=== PATIENT | female | born 1955 | race Caucasian/White ===

== ENCOUNTER → 2024-08-14 17:46 | Outpatient (REF) | payer OTHER, SELFPAY | LOC: RAD 17:46 | PROVIDERS: ATTENDING PHYSICIAN Internal Medicine | DX: S76.219A Strain of adductor muscle, fascia and tendon of unspecified thigh, initial encounter (principal); M25.552 Pain in left hip | CPT/HCPCS: 73502 ==

== ENCOUNTER 2024-09-15 13:04 | Outpatient (RCR) | payer OTHER, SELFPAY | END 2024-09-15 23:59 | disposition home or self-care (01) | LOC: RPT 13:04 | PROVIDERS: ATTENDING PHYSICIAN Internal Medicine | DX: S76.219D Strain of adductor muscle, fascia and tendon of unspecified thigh, subsequent encounter (principal); Z73.6 Limitation of activities due to disability | CPT/HCPCS: 97110; 97162 ==

== ENCOUNTER → 2024-10-26 14:08 | Outpatient (REF) | payer OTHER, SELFPAY | LOC: WDC 14:08 | PROVIDERS: ATTENDING PHYSICIAN Obstetrics & Gynecology Gynecology; FAMILY PHYSICIAN Internal Medicine | DX: Z78.0 Asymptomatic menopausal state (principal); Z12.31 Encounter for screening mammogram for malignant neoplasm of breast | CPT/HCPCS: 77063; 77067; 77080 ==

== ENCOUNTER → 2024-11-02 14:01 | Outpatient (REF) | payer OTHER, SELFPAY | LOC: HWRAD 14:01 | PROVIDERS: ATTENDING PHYSICIAN Internal Medicine Critical Care Medicine; FAMILY PHYSICIAN Internal Medicine | DX: R91.1 Solitary pulmonary nodule (principal) | CPT/HCPCS: 71250 ==

== ENCOUNTER → 2024-11-06 10:04 | Outpatient (REF) | payer OTHER, SELFPAY | LOC: WDC 10:04 | PROVIDERS: ATTENDING PHYSICIAN Obstetrics & Gynecology Gynecology; FAMILY PHYSICIAN Internal Medicine | DX: R92.8 Other abnormal and inconclusive findings on diagnostic imaging of breast (principal) | CPT/HCPCS: 77065 ==

== ENCOUNTER → 2024-11-12 07:05 | Outpatient (REF) | payer OTHER, SELFPAY ==
--- NOTE | 2024-11-12 09:17 | OID.BR.INTR ---
[facility] Breast Navigator - Initial
- -
Date of Contact: 11/12/24
Met with patient. Patient given written information on navigator services and support services available at [facility]. Will follow up as needed per protocol.
== END ==
LOC: WDC 07:05
PROVIDERS: ATTENDING PHYSICIAN Obstetrics & Gynecology Gynecology
DX: R92.1 Mammographic calcification found on diagnostic imaging of breast (principal)
CPT/HCPCS: 88305; 19081; 76098; A4648

== ENCOUNTER → 2024-12-02 10:52 | Outpatient (REF) | payer OTHER, SELFPAY ==
[2024-12-02 15:07] LABS: % Basophils 0.3 % (0-2); % Eosinophils 0.9 % (0-6); % Immature Granulocytes 0.9 % (0-0.5); % Lymphocytes 24.7 % (20.5-51.1); % Monocytes 7.7 % (1.7-9.3); % Neutrophils 65.5 % (42.2-75.2); Absolute Eosinophils 0.1 10^3/uL (0-0.7); Absolute Immature Granulocytes 0.1 10^3/uL (0-0.05); Absolute Lymphocytes 1.6 10^3/uL (1.2-3.4); Absolute Monocytes 0.5 10^3/uL (0.1-0.6); Absolute Neutrophils 4.2 10^3/uL (1.4-6.5); Hematocrit 42.3 % (37.0-47.0); Hemoglobin 14.1 g/dL (12.0-16.0); Mean Corp Hgb Conc. 33.3 g/dL (33.0-37.0); Mean Corpuscular Hgb 29.9 pg (27.0-31.0); Mean Corpuscular Volume 89.8 fL (81.0-99.0); Mean Platelet Volume 10.9 fL (7.4-10.4); Nucleated Red Blood Cells % 0 %; Platelet Count 255 10^3/uL (130-400); Red Blood Cell Count 4.71 10^6/uL (4.20-5.40); Red Cell Dist. Width 12.4 % (11.5-14.5); White Blood Cell Count 6.5 10^3/uL (4.8-10.8)
[2024-12-02 15:45] LABS: ALT (SGPT) 37 U/L (0-35); AST (SGOT) 30 U/L (14-36); Albumin 4.5 g/dl (3.5-5.0); Alkaline Phosphatase 99 U/L (38-126); Direct Bilirubin 0.2 mg/dl (0.0-0.4); HDL Cholesterol 51 mg/dl; LDL Cholesterol, Calculated 163 mg/dl; Total Bilirubin 0.5 mg/dl (0.2-1.3); Total Cholesterol 239 mg/dl (50-199); Total Protein 7.4 g/dl (6.3-8.2); Triglyceride 128 mg/dl (10-149); Very Low Density Lipoprotein 25 mg/dl (0-30)
[2024-12-02 15:49] LABS: Erythrocyte Sed Rate 13 mm/hour (0-20)
[2024-12-02 16:09] LABS: TSH 1.68 uIU/ml (0.47-4.68)
[2024-12-03 08:15] LABS: Glycohemoglobin (HgbA1c) 5.8 % (4.0-5.6)
[2024-12-03 18:34] LABS: CA 125 10.6 U/mL (0-35)
== END ==
LOC: OLAB 10:52
PROVIDERS: ATTENDING PHYSICIAN Internal Medicine; OTHER PHYSICIAN Internal Medicine Gastroenterology
DX: K76.0 Fatty (change of) liver, not elsewhere classified (principal); R91.1 Solitary pulmonary nodule; I10 Essential (primary) hypertension; R73.01 Impaired fasting glucose; G47.33 Obstructive sleep apnea (adult) (pediatric); Z98.890 Other specified postprocedural states
CPT/HCPCS: 36415; 80061; 80076; 83036; 84443; 85025; 85652; 86304

== ENCOUNTER 2024-12-14 06:16 | Day surgery (SDC) | payer OTHER, SELFPAY ==
[2024-12-02 13:52] VITALS: BMI 28.3
[2024-12-02 14:33] LABS: INR 0.88; PT 12.5 Sec (11.4-14.6)
[2024-12-02 14:34] LABS: APTT 26.3 Sec (23.4-35.0)
[2024-12-02 15:52] LABS: Blood Urea Nitrogen 19 mg/dl (7-17); Carbon Dioxide 27 mmol/L (22-30); Chloride 103 mmol/L (98-107); Estimated Creatinine Clearance 62 ml/min; Glucose 115 mg/dl (70-99); Potassium 4.3 mmol/L (3.5-5.1); Sodium 140 mmol/L (135-145); eGFR > 60.00
[2024-12-14] VITALS (10 sets, daily range): BP systolic 126–169; BP diastolic 66–86; BMI 28.3
== END 2024-12-14 11:50 | disposition home or self-care (01) ==
LOC: SDS 06:16
PROVIDERS: ATTENDING PHYSICIAN Internal Medicine Critical Care Medicine; FAMILY PHYSICIAN Internal Medicine
DX: C34.90 Malignant neoplasm of unspecified part of unspecified bronchus or lung (principal); R91.1 Solitary pulmonary nodule; R91.8 Other nonspecific abnormal finding of lung field; R59.0 Localized enlarged lymph nodes
CPT/HCPCS: 31629; 31623; 31628; 31654; 31624; 31627; 88173; 88305; 36415; 71045; 76000; 80048; 85610; 85730; 87070; 87102; 87116; 87205; 88112; 88333; 88341; 88342; 94640; C1887

== ENCOUNTER → 2025-01-06 07:43 | Outpatient (REF) | payer OTHER, SELFPAY | LOC: PET 07:43 | PROVIDERS: ATTENDING PHYSICIAN Internal Medicine Critical Care Medicine | DX: C7A.8 Other malignant neuroendocrine tumors (principal) | CPT/HCPCS: 78815 ==

== ENCOUNTER → 2025-02-22 12:28 | Outpatient (REF) | payer OTHER, SELFPAY | LOC: HWRAD 12:28 | PROVIDERS: ATTENDING PHYSICIAN Internal Medicine Gastroenterology; FAMILY PHYSICIAN Internal Medicine | DX: K76.0 Fatty (change of) liver, not elsewhere classified (principal) | CPT/HCPCS: 76700 ==

== ENCOUNTER → 2025-04-12 13:25 | Outpatient (REF) | payer OTHER, SELFPAY | LOC: HWRAD 13:25 | PROVIDERS: ATTENDING PHYSICIAN Thoracic Surgery (Cardiothoracic Vascular Surgery); FAMILY PHYSICIAN Internal Medicine | DX: Z01.818 Encounter for other preprocedural examination (principal); R91.1 Solitary pulmonary nodule | CPT/HCPCS: 71250 ==

== ENCOUNTER 2025-04-21 05:05 | Inpatient (IN) | payer OTHER, SELFPAY ==
[2025-04-07 12:17] VITALS: BMI 33.3
[2025-04-07 12:52] LABS: Hematocrit 38.9 % (37.0-47.0); Hemoglobin 13.8 g/dL (12.0-16.0); Mean Corp Hgb Conc. 35.5 g/dL (33.0-37.0); Mean Corpuscular Volume 87.8 fL (81.0-99.0); Nucleated Red Blood Cells % 0 %; Platelet Count 261 10^3/uL (130-400); Red Cell Dist. Width 12.6 % (11.5-14.5)
[2025-04-07 13:04] LABS: INR 0.92; PT 12.9 Sec (11.4-14.6)
[2025-04-07 13:04] LABS: Urine Character Clear (Clear)
[2025-04-07 13:17] LABS: ALT (SGPT) 26 U/L (0-35); AST (SGOT) 21 U/L (14-36); Albumin 4.2 g/dl (3.5-5.0); Alkaline Phosphatase 80 U/L (38-126); Blood Urea Nitrogen 18 mg/dl (7-17); Calcium 9.9 mg/dl (8.4-10.2); Carbon Dioxide 26 mmol/L (22-30); Chloride 106 mmol/L (98-107); Estimated Creatinine Clearance 64 ml/min; Glucose 105 mg/dl (70-99); Potassium 4.1 mmol/L (3.5-5.1); Sodium 138 mmol/L (135-145); Total Protein 7.2 g/dl (6.3-8.2); eGFR > 60.00
[2025-04-07 13:20] LABS: Urine Red Blood Cell 0-2 /HPF (0-2); Urine White Cell 0-2 /HPF (0-5)
--- NOTE | 2025-04-07 13:45 | CM ---
Chart reviewed. Met with the patient in PAT. Reviewed preoperative and postoperative instructions and restrictions, along with showering guidelines. Gave patient 2 soaps and Thoracic Lung Surgery Book. Patient agreeable to a visit by CT
Transitional RN. Patient is independent of ADLS, lives alone in a 2 STH, 1 JAVI, 0 DME. 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 Patient with a supportive daughter and lives close. Plan is for the patient to return home with CT
Transitional RN. CM to follow
[2025-04-07 14:22] LABS: Glycohemoglobin (HgbA1c) 5.7 % (4.0-5.6)
[2025-04-21] VITALS (17 sets, daily range): BP systolic 121–173; BP diastolic 62–89; PULSE 58; BMI 33.9
--- NOTE | 2025-04-21 06:16 | W.CVOR.SURPR ---
CVOR Surgeon Immed Pre Op
-
I have examined this patient prior to performance of the scheduled procedure.
The patient's condition is unchanged from the time of the dictated/written History and
Physical and the patient is able to undergo the scheduled procedure.
RLL medial basilar segment wedge with bronchoscopy guidance and LN Dissection
--- NOTE | 2025-04-21 06:20 | PTCARENOTE ---
Pt admitted to room 2267. Pt changed into gown. Weight and VS obtained. BP high - PA aware. Pt confirmed 2 showers at home and NPO status. Admission questions and med rec completed. Clip/prep/CHG cloth bath complete. ABO drawn and sent. Pt w/ cream
on B/L lower arms for IV to be placed by anesthesia. Pt w/ needle phobia. Dr. Hernandez saw pt and signed chest. Daughter at bedside. Call pedroza within reach.
[2025-04-21 07:44] LABS: Urine Character Clear (Clear)
--- NOTE | 2025-04-21 08:40 | W.PN.UPDATE ---
Update Note
Progress Note Update
Bronchoscopy note
See operative note for complete details
Indications: Inspection, Identification of RLL lesion and Injection of indocyanine green (ICG) in preparation for surgical resection
Findings: Pt was intubated and sedated for procedure. Time out was completed. Ultrathin bronchoscope was introduced via ET tube and rt side TB tree was inspected. Location of EB lesion was corroborated with virtual images from recent ION CT scan
04/12/25 using ION laptop platform. Endobronchial lesion was identified in medial subsegment of right lower lobe. Scope exchanged with diagnostic scope for injection of ICG. Olympus Vizishot 21G needle was introduced through the diagnostic scope.
1cc ICG dye injected transbronchially proximal to lesion x 2 without significant bleeding and without complications.
--- NOTE | 2025-04-21 09:56 | W.PN.CD ---
Today's Communication / Plan
-
Wedge resection today.
Routine post operative management.
Impression / Plan
-
Impression/Plan: 70 y/o female with HTN, ALEXUS on CPAP, PMR, RA and neuroendocrine neoplasm admitted for RLL wedge resection.
#Neuroendocrine tumor
-Chronic, progressive.
-S/P wedge resection with Dr. Hernandez, 04/21/2025.
-Anticipate routine post operative management.
-Encourage incentive spirometry.
-Ambulate when appropriate.
-Pain/chest tube management per CT surgery.
#HTN
-Chronic.
-We will restart home antihypertensives as indicated post op.
#ALEXUS
-Chronic.
-Home CPAP.
#PMR/RA
-Chronic, stable.
-No current immunosuppressives/steroids.
Subjective/Interval History:
Extubated and feeling well.
DATA:
TTE, 08/20/2024:
CONCLUSIONS
Left ventricular ejection fraction is 60-65%, by visual assessment. Normal
regional wall motion.
Normal right ventricular size and function.
Aortic sclerosis without stenosis.
No significant change in overall cardiac function since the prior study of
06/17/2020.
Physical Exam
Vital Signs/Labs
Vital Signs
Temp Pulse Resp BP Pulse Ox
36.8 C 86 18 173/89 98
04/21/25 05:39 04/21/25 05:39 04/21/25 05:39 04/21/25 06:03 04/21/25 05:39
04/19/25 04/20/25 04/21/25
11:59 11:59 11:59
Actual Weight 92.3 kg
04/07/25 12:25
04/07/25 12:25
PT 12.9 Sec (11.4-14.6) 04/07/25 12:25
INR 0.92 04/07/25 12:25
Physical Exam
Constitutional: No acute distress and Comfortable
EENT: Anicteric and Moist mucous membranes
Cardiovascular: Rhythm & rate is regular, Pedal edema is absent, JVD pressure is normal, S1S2 is normal and Murmur/rub/gallop absent
Respiratory: Respiratory effort normal and Other (Decreased throughout.)
GI: Soft, Distention absent, Flat, Non tender and Normal bowel sounds
Neuro/Psych: Other (Intubated and sedated.)
Data Reviewed
-
Date of Service: April 21, 2025
Medical Decision Making: Reviewed Test Results, Independent Historian Assessment and Test Interpretation
EKG: Tracing Personally Visualized and interpreted and Report Reviewed by me
Echo: Report Reviewed by me
X-Ray/CT/US/MRI/NUC/PET: Image Personally Visualized and interpreted and Report Reviewed by me
Labs: Labs Reviewed by me
[2025-04-21 11:04] LABS: Urine Red Blood Cell 0-2 /HPF (0-2); Urine White Cell 0-2 /HPF (0-5)
--- NOTE | 2025-04-21 11:39 | CM ---
Chart reviewed. Patient is in the OR today. Patient is independent of ADLS, lives alone in a 2 STH, 1 JAVI, 0 DME. 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 Patient with a supportive daughter and lives close. Plan is for the
patient to return home with CT Transitional RN. CM to follow
--- NOTE | 2025-04-21 11:41 | W.PN.CT.SURG ---
CT Surgery Operative Note
-
THORACIC SURGERY OPERATIVE REPORT
Preoperative Diagnosis: Typical carcinoid, right lower lobe
Postoperative Diagnosis: Same
Procedure(s) Performed:
1. Robotic assisted thoracic surgery [R ATS]
2. Bronchoscopy with ICG localization performed by Dr. Jean Baptiste
3. Formal segmentectomy of medial basal segment the right lower lobe [B7]
4. Lymph node dissection
5. Intercostal nerve block interspaces 6, 7, 8
6. Additional wedge resection of underventilated lung tissue
Date of Surgery: 04/21/2025
Comorbidities:
1. Pulmonary carcinoid, typical
2. Hypertension
3. ALEXUS on CPAP
4. Bipolar disorder
5. Anxiety
6. Ovarian cancer status post total abdominal hysterectomy and bilateral salpingo-oophorectomy
7. Morbid obesity BMI of 33.9
Attending Surgeon: Luis Daniel Hernandez MD, MS
Assistants: Deedee Rodriguez MD (performed the additional wedge resection, intercostal nerve block) & Alicia Andrews PA-C (present and necessary to clinical lab assistant, exchanging robotic instruments, retraction, suction, exposure, suture management, and wound
closure under my direction)
Anesthesiology: Leoncio Cazares MD and Julia Cardenas CRNA
Scrub and Circulating RNs: Celia Hennessy RN, Rosanne Birch RN
Anesthesia: 8-0 ET tube with bronchial marietta in the right
EBL: 150 cc
Products: None
Indication(s) for Procedures: This is a 70-year-old female who was found to have a low-grade right lower lobe neuroendocrine tumor that came back as typical carcinoid. She is referred to me for consideration of a segment resection.
Findings: There were no obvious intrathoracic lesions concerning for metachronous disease. Dr. Jean Baptiste performed a preoperative bronchoscopy in order to localize the tumor in the medial aspect of the right lower lobe subsegmental bronchus. ICG was
then used to inject peribronchial he in order to locate this lesion intraoperatively. Firefly in the robot was used to identify the lesion. I then isolated the airway leading to this B7 segment of the right lower lobe. The artery feeding the
segment was also divided using a vessel sealer. The vein to the second was also divided using a vessel sealer. At this point anesthesia was asked to inflate the lung and the area of no ventilation was marked out with bipolar cautery. Multiple
fires of green load and black load staplers were required in order to isolate the segment of lung tissue. Intraoperative pathological assessment by frozen section verified that the tumor was inside the specimen and the margins of the bronchus was
negative. Upon inflation of the lung, it became apparent that the small leftover segment at the medial portion did not have a ventilation tube so additional wedge resection of this tissue was taken in order to prevent shunting. There is no
significant air leaks or loss of tidal volumes the inclusion the case and the remaining lung tissue inflated unobstructedly.
Specimen(s):
Station 8, x 1 nodes
Station 10, x 1 nodes
Right lower lobe medial basilar segment [B7] lobe
Additional wedge underventilated lung tissue at the medial segment
Description of Procedure: The patient was taken to the operating room. Induction via general anesthesia with endotracheal intubation was performed and peripheral venous access and arterial monitoring were inserted. A bronchoscopy was performed with
a regular ET tube by Dr. Jean Baptiste from the pulmonary service. Please see his dictation for his portion of the procedure. Their identity and procedure to be performed were verified and they were positioned with the right side up on the operating
table. The patient was then prepped and draped in a sterile fashion. A preoperative time-out was performed with all members of the team present. A Veress needle was used to insufflate the chest after isolating the lung. An 8 mm port was placed in
the midaxillary line at approximately the eighth intercostal space and confirmed to be intrathoracic without significant pulmonary injury. The chest was surveyed for any evidence of metastatic disease. Patient tolerate insufflation without
complication. 2 additional 12 mm trocars were placed on either side under camera guidance and a third 8 mm trocar was placed along the back. A 12 mm assistant librarian port was placed in the 11th intercostal space above the insertion of the diaphragm. An
intercostal nerve block was performed at intercostal spaces 6 through 8.
The thoracic cavity was inspected for evidence of metastatic disease. None was observed. We started with mobilization of the inferior pulmonary ligament. We worked our way clockwise dissecting out the hilum and harvest any lymph nodes identified.
I then worked medially along the hilum. The fissure between the right upper and right middle lobes was divided. The pulmonary arterial branches leading to the medial basilar segment of the right lower lobe was identified and isolated. As they
were small vessel sealer was used to cauterize this and divided. A small vein traveling along the segmental bronchus was also identified and divided using a vessel sealer. There were 2 branches of bronchus leading to the medial and lower segments
of the right lower lobe. This is where the ICG was highly concentrated. I circumferentially freed up the bronchus here and then divided with the aid of a vessel loop. Was done with green load staplers. Next the lung was ventilated by anesthesia
and any areas on her poor ventilation was identified with bipolar cautery marking out our segmental plane. This was divided using multiple green and black 60 mm staple fires. The specimen was displaced toward the apex while a chest tube was
inserted and placed laterally towards the apex. CoSeal was used to reinforce the staple lines and hilum. The right lower lobe segment was then placed into a specimen bag and extracted from the chest cavity. We then waited for frozen section
pathological assessment of the margin. Test inflation of the lung by anesthesia here demonstrated a small residual medial segment of the right lower lobe that was not inflating or ventilating well. This was taken with a single green load stapler
and sent off as permanent specimen. After confirming hemostasis, the lung was fully inflated and all ports were removed. Incisions were closed in 3 layers including the fascia, dermal, and epidermis. Additional local anesthesia was injected into
all incision sites. The skin wound was cleansed and sealed with Dermabond glue.
All instrument, sponge, and needle counts were confirmed to be correct x 2 at the end of the operation. The patient was transferred to the cardiac intensive care unit extubated in critical but stable condition.
I, Dr. Luis Daniel Hernandez, was present, scrubbed for, and performed all critical elements of this procedure.
Luis Daniel Hernandez MD, MS
Cardiothoracic Surgeon
[facility]
This operative dictation was created using the Finjan dictation system. Please excuse any grammatical, typographical, or 'sound alike' errors
--- NOTE | 2025-04-21 12:15 | CON.INTV ---
Consultation
Consultation Request
Date/Time Consultation Requested: 04/21/2025-12:30 PM
Date/Time Consultation Performed: 04/21/2025-12:30 PM
Requesting Provider: Dr. Hernandez
Performing Provider: Dr. Mcdaneil
Reason for Consultation: Postoperative critical care management
Medical History
-
Chief Complaint: Lung cancer
History of Present Illness:
70-year-old non-smoking female with a history of hypertension, sleep apnea, irritable bowels, polymyalgia rheumatica, bipolar disorder found to have slow-growing low-grade neuroendocrine neoplasm in the right lower lobe and underwent wedge resection
and lymph node biopsies in the OR by Dr. Hernandez 04/21/2025-gyroscopic engineering technician consulted for postoperative respiratory/critical care management 04/21/2025. I am seeing the patient postoperatively in the cardiovascular intensive care unit. She complains of chest
tube site pain and pain when she takes a deep breath. Otherwise she does not complain of any shortness of breath, chest congestion, hemoptysis, abdominal pain, nausea, focal weakness or leg swelling.
Past Medical History
Past Medical History: None (Hypertension. Allergies. ALEXUS on CPAP. Bipolar. Ovarian cancer stage I 1994 SARAY/BSO. Rheumatoid arthritis. GERD. Prediabetes. Retinal tear. Cataract. Appendectomy. Left breast biopsy.)
Social History
Tobacco: Non-smoker
Alcohol: Occasional
Drug: None
Personal:
Occupational Exposures: No known asbestos exposure
Environmental Exposures: No known tuberculosis exposure
Family History
Family History: Reviewed & Not Pertinent (Father-diabetes and lymphoma. Mother-hypertension. Older son diabetes and anxiety and renal calculi)
Allergies / Home Medications
Allergies
Allergy/AdvReac Type Severity Reaction Status Date / Time
cats, mold, mildew etc Allergy itching Uncoded 04/05/25 16:00
and
cold-like
symptoms
Home Medications
�Medication �Instructions �Recorded �Confirmed �Last Taken �Type
diazepam 5 mg tablet 5 mg PO TIDPRN PRN vertigo 04/23/15 04/21/25 02/19/25 History
irbesartan 150 mg tablet 75 mg PO DAILY Blood Pressure 04/23/15 04/21/25 04/18/25 19:00 History
lamotrigine 100 mg tablet 75 mg PO BID Mental Health/Anxiety 04/23/15 04/21/25 04/20/25 19:00 History
docusate sodium 50 mg capsule 50 mg PO DAILY PRN constipation 12/09/24 04/21/25 04/20/25 19:00 History
(Stool Softener)
pantoprazole 40 mg tablet,delayed 40 mg PO DAILY Gastrointestinal 12/09/24 04/21/25 04/20/25 11:00 History
release (Protonix) Issue
polyethylene glycol 3350 17 4 g PO DAILY PRN constipation 12/09/24 04/21/25 04/20/25 19:00 History
gram/dose oral powder (Miralax)
hydrochlorothiazide 25 mg tablet 25 mg PO DAILY Blood Pressure 04/05/25 04/21/25 04/18/25 11:00 History
ascorbic acid 1,000 1,000 ea PRN PRN if feeling sick 04/21/25 04/21/25 04/20/25 11:00 History
ca-zakrstvydsku-cwxtlrzw powder
effervescent pack (Emergen-C)
fluticasone furoate 100 100 mcg inhalation 1XD 04/21/25 04/21/25 04/20/25 15:30 History
mcg/actuation blister powder for Lung/Breathing Issues
inhalation (Arnuity Ellipta)
propranolol 10 mg tablet 10 mg PO PRN PRN palpations 04/21/25 04/21/25 03/21/25 19:00 History
Review of Systems
-
Unable to Obtain full review of systems at this time due to: Other ( Per HPI)
Vitals / Labs / Diagnostic Testing
Vital Signs
Temp Pulse Resp BP Pulse Ox
98.3 F 86 18 173/89 98
04/21/25 05:39 04/21/25 05:39 04/21/25 05:39 04/21/25 06:03 04/21/25 05:39
Lab Data
04/07/25 12:25
04/07/25 12:25
Diagnostic Testing:
Physical Exam
-
Exam:
Well-nourished and well-developed in no apparent distress
HEENT-atraumatic, normocephalic
Neck-supple, no JVD, no bruit
Heart-regular rate and rhythm-no murmurs, rubs or gallops
Chest-clear to auscultation, no wheezes, crackles
Back-no tenderness
Abdomen-soft, nontender, nondistended, no hepatosplenomegaly
Extremities-no cyanosis, clubbing, edema and good peripheral pulses
Integument-intact, no rashes, lesions or ecchymosis
Neurology-alert and oriented, nonfocal motor and sensory exam
Assessment
-
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
biopsies in the OR by Dr. Hernandez 04/21/2025-gyroscopic engineering technician consulted for postoperative respiratory/critical care management 04/21/2025.
Lung lsrvlt-aezp-zeodyzf neuroendocrine tumor right lower lobe
Status post bronchoscopy
Status post robotic assisted surgery, intraoperative bronch, formal segmentectomy of medial basilar segment right lower lobe, lymph node dissection, wedge resection of lung ventilated lung tissue-Dr. Hernandez 04/21/2025
Conditions present prior to admission:
Hypertension.
Allergies.
ALEXUS on CPAP.
Bipolar.
Ovarian cancer stage I 1994 SARAY/BSO.
Rheumatoid arthritis.
GERD.
Prediabetes.
Retinal tear.
Cataract. Appendectomy. Left breast biopsy.
Plan
History and objective workup leading up to surgery is summarized below including radiographs, CTs of the abdomen, CT chest, PET scans, PFTs, stress test and sleep studies-reviewed and summarized below
Patient stable postoperatively and now extubated in the cardiovascular intensive care unit
Supplemental oxygen as needed
Nebulizers if needed-currently not bronchospastic
Aspiration precautions
Thoracic surgery following-correspondence and operative records reviewed
Monitor chest tube output
Follow hemoglobin
Transfuse if needed
Analgesia per surgery
DVT prophylaxis
Nutrition
Early mobilization
Dr. Mcdaniel updated daughter and son at the bedside
Patient last seen by Dr. Jean Baptiste in the office 02/10 and subsequently had a bronchoscopy and has appointment 05/24/2025 at 3:30 PM
Critical care statement: A total of 55 minutes of critical care time was provided for this patient today. This includes management of unstable vital signs, evaluation of the patient at bedside, reviewing the patient�s pertinent medical records
including radiographs, microbiology, laboratory evaluations, and��discussion with primary team, consultants, pharmacy, nutrition, physical therapy, case management, charge nurse, critical care nursing, and respiratory therapy.
Diagnostic data:
CXR 02/07/22: no acute findings
Chest x-ray from 01/22/2017 reveals no active disease.
CT 05/29/19: lung parenchyma is normal
Abd CT 05/27/23: 9.7 mm left lower lobe nodule, slowly increasing in size compared to October 2014 at which time it was 4.1 mm. Report states it was 6.[address] in 2019. Mild right middle lobe and lingular scar.
CT chest 11/02/24: left lower lobe nodule measured 11 mm, increased from 9 mm compared to 08/22/23.� Thereis a nodule, possible mucus plugging 7 mm (image #243 right lower lobe) and 3mm (image 146 right middle lobe) on the right side unchanged.� No
adenopathy.� �Mild bronchiectasis
CT chest 04/12/2025-stable endobronchial and pulmonary nodules compared to October CT and December 2024 PET scan, stable 7 mm endobronchial nodule medial basilar segment bronchus of the right lower lobe consistent with primary low-grade neuroendocrine
neoplasm, stable 3 mm right upper lobe nodule, stable 3 mm subpleural tree-in-bud ground glass nodule superior segment right lower lobe, stable 3 mm lingular nodule, stable 1 cm left lower lobe nodule
PET scan 08/22/23: 9.7 mm left lower lobe nodule. SUV 1.4, delayed SUV 1.1
PET scan 01/06/25: mediastinum is normal.� 7.3 mm right lower lobe endobronchial nodule with max SUV 3.8.� There is a 1 cm left lower lobe nodule unchanged, 3 mm right upper lobe nodule unchanged, negative uptake.� There is a mosaic pattern.� No
uptake in the abdomen.� No uptake in the skeletal system
PFT 01/20/25: FVC 3.02/98%, FEV1 2.31/99%, ratio 76.� TLC 4.11/81%, DLCO 23.68/109%.� This is normal
Stress echo 09/10/23: normal
HST 01/19/22: Total index 6.3, desaturaation chino 87%
HST 11/14/20: total index 7.0, one episode of central apnea, desaturation chino 82%sleep study 07/21/14: Normal.
Data Reviewed
-
PFT: Report reviewed by me
EKG: Report reviewed by me
Radiology: Image personally visualized and interpreted and Report reviewed by me
CT Scan: Image personally visualized and interpreted and Report reviewed by me
MRI: Report reviewed by me
Medical Tests (Nuc Med, Echo etc): Report reviewed by me
Labs: Labs reviewed by me
Old Records: Reviewed
Critical Care Time (in minutes): 55
[2025-04-21] MEDS: TORADOL 15 MG IV (12:54)
[2025-04-21] MEDS: SUBLIMAZE 25 MCG IV (13:14)
[2025-04-21] MEDS: ANCEF 10 IV ×2 (13:43)
[2025-04-21] MEDS: MIRALAX PO (13:44)
[2025-04-21] MEDS: SENOKOT PO (13:44)
[2025-04-21] MEDS: ROXICODONE 5 MG PO ×2 (13:52→20:10)
[2025-04-21] MEDS: LOPRESSOR 12.5 MG PO ×2 (13:52→20:10)
[2025-04-21] MEDS: NEURONTIN 100 MG PO ×2 (13:52→22:17)
[2025-04-21] MEDS: PROTONIX 40 MG PO (13:52)
[2025-04-21] MEDS: LAMICTAL 75 MG PO ×2 (13:52→20:10)
[2025-04-21] MEDS: TYLENOL PO (13:53)
[2025-04-21] MEDS: ZOFRAN 4 MG IV (13:58)
--- NOTE | 2025-04-21 14:13 | PTCARENOTE ---
Received pt from PACU via bed; pt AAOX3 and resting comfortably in bed; NSR on monitor and VSS; Left A-line, PIV x2 patent; A-line leveled and zeroed; Lungs diminished; CT x1 to water seal; hypoactive bowel sounds; pt DTV at 1745; palpable pulses
throughout; no edema noted; all surgical sites C/D/I; see MAR for pain management; see nursing documentation for further details.
--- NOTE | 2025-04-21 14:58 | PTCARENOTE ---
Left A-line removed.
[2025-04-21] MEDS: NEURONTIN PO (15:22)
[2025-04-21] MEDS: HEPARIN 5000 UNITS SC (15:31)
[2025-04-21] MEDS: FLEXERIL 5 MG PO (16:32)
[2025-04-21] MEDS: ANCEF 5 IV (16:32)
[2025-04-21] MEDS: FLOVENT 44 MCG INHALER 2 PUFF INH (19:46)
[2025-04-21] MEDS: SENOKOT 8.6 MG PO (20:10)
--- NOTE | 2025-04-21 21:00 | PTCARENOTE ---
Assumed care of pt from dayshift RN. Walking rounds completed. Pt AAOx3. SR to sinus annie on the tele monitor. HR 50-70s. BP stable. Palpable pulses throughout. Pt is on 2 L NC. POX 97%. Right pleural CTx1 to water seal. Tidaling present. +1
airleak only when pt coughs. Lung sounds diminished w/ crackles in B/L base. Deep breathing and IS encouraged. Abdomen round. Hypoactive BS. Pt assisted OOB to void w/ assist x1 and then repositioned back into bed. All surgical sites stable. Left
hand PIV x2 intact. See MAR for pain medication administration. See worklist for full nursing assessment and interventions. Call pedroza within reach.
[2025-04-21] MEDS: TYLENOL 1000 MG PO (22:17)
[2025-04-22] VITALS: BP 118/64
[2025-04-22] MEDS: ANCEF 5 IV ×2 (00:07→08:12)
[2025-04-22] MEDS: HEPARIN 5000 UNITS SC ×2 (00:07→08:12)
--- NOTE | 2025-04-22 00:15 | PTCARENOTE ---
Pt reassessed. No acute changes in assessment. VSS. Pt on CPAP machine. POX 96%. CT x1 to water seal intact. Tidaling present. +1 airleak w/ cough. Pt resting comfortably in bed. Call pedroza within reach.
--- NOTE | 2025-04-22 03:01 | W.PN.CT ---
Today's Communication / Plan
-
-pod #1
-no significant issues overnight
-R pleural CT on water seal. +1 intermittent air leak noted only with cough. CT output 70/178 in 12/24 hrs
-follow CXR
-encourage IS, OOB, ambulate
Assessment / Plan
-
- Typical carcinoid, right lower lobe- s/p Robotic assisted thoracic surgery [RATS]; Formal segmentectomy of medial basal segment the right lower lobe [B7]; Additional wedge resection of underventilated lung tissue; Lymph node dissection by
Hernandez on 04/21/25, pod #1
- Bronchoscopy with ICG localization performed by Dr. Jean Baptiste on 04/21/25
- Pulmonary carcinoid, typical
- Hypertension
- ALEXUS, on CPAP
- Bipolar disorder
- Anxiety
- Ovarian cancer, status post total abdominal hysterectomy and bilateral salpingo-oophorectomy
- Class 1 obesity, BMI of 33.9
- IBS
- PMR
- GERD
- Torn L retina
Discussed patient care with: Nursing and Care Team
Subjective
-
Date of Service: April 22, 2025
Objective Data
-
PT 12.9 Sec (11.4-14.6) 04/07/25 12:25
INR 0.92 04/07/25 12:25
Vital Signs
Vital Signs
Temp Pulse Resp BP Pulse Ox
98.5 F 54 16 118/64 95
04/22/25 00:00 04/22/25 02:00 04/22/25 00:00 04/22/25 00:00 04/22/25 02:00
CT Intake/Output/Weight
04/21/25 04/21/25 04/22/25
06:59 18:59 06:59
Intake Total 150 / 150
Output Total 308 / 568 260 / 568
Balance -158 / -418 -260 / -418
SaO2: 95
Physical Exam
-
General: Awake and AOx3
Cardiovascular: Regular rate & rhythm, No Murmurs and No Rub
Respiratory: Rhonchi (on Right, clear on Left) and Decreased Breath Sounds
Incision: Clean, Dry and Dressing Intact
Extremities: No Edema (2+DPs b/l)
Abdomen: soft, nontender, nondistended, + bowel sounds
Data Reviewed
-
Lab Results: Results Reviewed
Medications: Active Meds Reviewed
Chest X-Ray: Report Reviewed and Image Reviewed
ECG: Report Reviewed and Image Reviewed
[2025-04-22 03:50] VITALS: BP 111/69
[2025-04-22 04:10] LABS: Hematocrit 34.1 % (37.0-47.0); Hemoglobin 11.1 g/dL (12.0-16.0); Mean Corp Hgb Conc. 32.6 g/dL (33.0-37.0); Mean Corpuscular Volume 90.7 fL (81.0-99.0); Platelet Count 232 10^3/uL (130-400); Red Cell Dist. Width 12.6 % (11.5-14.5)
--- NOTE | 2025-04-22 04:15 | PTCARENOTE ---
No acute changes in assessment. VSS. Pt on CPAP machine. Right lateral CT to water seal maintained. Pt repositioned in bed. Pain under control at this time. Labs drawn and sent. Call pedroza within reach.
[2025-04-22 04:33] LABS: Blood Urea Nitrogen 16 mg/dl (7-17); Calcium 8.3 mg/dl (8.4-10.2); Carbon Dioxide 29 mmol/L (22-30); Chloride 107 mmol/L (98-107); Estimated Creatinine Clearance 72 ml/min; Glucose 112 mg/dl (70-99); Magnesium 2.1 mg/dl (1.6-2.3); Potassium 4.2 mmol/L (3.5-5.1); Sodium 138 mmol/L (135-145); eGFR > 60.00
[2025-04-22] MEDS: TYLENOL 1000 MG PO (06:29)
[2025-04-22] MEDS: ROXICODONE 5 MG PO ×2 (06:30→10:57)
[2025-04-22] MEDS: TORADOL 15 MG IV (06:33)
[2025-04-22 06:36] VITALS: BMI 34.1
--- NOTE | 2025-04-22 07:15 | PTCARENOTE ---
CT clamped per CTNP request.
--- NOTE | 2025-04-22 07:35 | W.PN.INTV ---
Today's Communication / Plan
Recommendations
Monitor chest tube output and airleak
Follow radiographically
Patient will be downgraded to telemetry-teacher drama will sign off-call pulmonary if respiratory issues arise
Outpatient pulmonary follow-up
Assessment
-
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
biopsies in the OR by Dr. Hernandez 04/21/2025-teacher drama consulted for postoperative respiratory/critical care management 04/21/2025.
Lung [id number] neuroendocrine tumor right lower lobe
Status post bronchoscopy
Status post robotic assisted surgery, intraoperative bronch, formal segmentectomy of medial basilar segment right lower lobe, lymph node dissection, wedge resection of lung ventilated lung tissue-Dr. Hernandez 04/21/2025
Conditions present prior to admission:
Hypertension.
Allergies.
ALEXUS on CPAP.
Bipolar.
Ovarian cancer stage I 1994 SARAY/BSO.
Rheumatoid arthritis.
GERD.
Prediabetes.
Retinal tear.
Cataract. Appendectomy. Left breast biopsy.
Plan
History and objective workup leading up to surgery is summarized below including radiographs, CTs of the abdomen, CT chest, PET scans, PFTs, stress test and sleep studies-reviewed and summarized below
Supplemental oxygen as needed-attempt to wean to room air
Nebulizers if needed-currently not bronchospastic
Aspiration precautions
Thoracic surgery following-correspondence and operative records reviewed
Monitor chest tube output-currently no airleak and minimal output
Follow radiographically and remove chest tube per surgery
Follow hemoglobin
Transfuse if needed
Analgesia per surgery
DVT prophylaxis
Nutrition
Early mobilization
If the patient does not have an air leak the chest tube may be out-the patient will be transferred out of ICU-call pulmonary if respiratory issues arise
Dr. Szekely updated daughter and son at the bedside on 04/21/2025
Patient last seen by Dr. Jean Baptiste in the office 01/20/25 and subsequently had a bronchoscopy and has appointment 05/24/2025 at 3:30 PM
Reviewed the patient�s pertinent medical records including radiographs, microbiology, laboratory evaluations, and��discussion with primary team, consultants, pharmacy, nutrition, physical therapy, case management, charge nurse, critical care
nursing, and respiratory therapy.
Diagnostic data:
CXR 02/07/22: no acute findings
Chest x-ray from 01/22/2017 reveals no active disease.
CT 05/29/19: lung parenchyma is normal
Abd CT 05/27/23: 9.7 mm left lower lobe nodule, slowly increasing in size compared to October 2014 at which time it was 4.1 mm. Report states it was 6.[address] in 2019. Mild right middle lobe and lingular scar.
CT chest 11/02/24: left lower lobe nodule measured 11 mm, increased from 9 mm compared to 08/22/23.� Thereis a nodule, possible mucus plugging 7 mm (image #243 right lower lobe) and 3mm (image 146 right middle lobe) on the right side unchanged.� No
adenopathy.� �Mild bronchiectasis
CT chest 04/12/2025-stable endobronchial and pulmonary nodules compared to October CT and December 2024 PET scan, stable 7 mm endobronchial nodule medial basilar segment bronchus of the right lower lobe consistent with primary low-grade neuroendocrine
neoplasm, stable 3 mm right upper lobe nodule, stable 3 mm subpleural tree-in-bud ground glass nodule superior segment right lower lobe, stable 3 mm lingular nodule, stable 1 cm left lower lobe nodule
PET scan 08/22/23: 9.7 mm left lower lobe nodule. SUV 1.4, delayed SUV 1.1
PET scan 01/06/25: mediastinum is normal.� 7.3 mm right lower lobe endobronchial nodule with max SUV 3.8.� There is a 1 cm left lower lobe nodule unchanged, 3 mm right upper lobe nodule unchanged, negative uptake.� There is a mosaic pattern.� No
uptake in the abdomen.� No uptake in the skeletal system
PFT 01/20/25: FVC 3.02/98%, FEV1 2.31/99%, ratio 76.� TLC 4.11/81%, DLCO 23.68/109%.� This is normal
Stress echo 09/10/23: normal
HST 01/19/22: Total index 6.3, desaturaation chino 87%
HST 11/14/20: total index 7.0, one episode of central apnea, desaturation chino 82%sleep study 07/21/14: Normal.
Subjective Dataa
Subjective Data
Date of Service:
Date of Service: April 22, 2025
Chief Complaint: Police And Fire Dispatcher Follow Up and Pulmonary Follow Up
Subjective:
Feels well, still with some pain, no anterior chest pain or abdominal pain or focal weakness
Review of Systems
General: Other ( per HPI)
Objective Data
Data Reviewed
Vital Signs / I&O / Oxygen:
Vital Signs
Temp Pulse Resp BP Pulse Ox
98.3 F 60 16 111/69 97
04/22/25 03:50 04/22/25 06:35 04/22/25 03:50 04/22/25 03:50 04/22/25 06:20
Intake and Output
04/21/25 04/22/25 04/23/25
06:59 06:59 06:59
Intake Total 150 / 150
Output Total 978 / 978
Balance -828 / -828
SaO2 97
Nasal Cannula flow liters per 2
minute
Physical Exam
General: Respiratory Distress and Comfortable
HEENT: Normocephalic, Anicteric and Moist Mucous Membranes
Cardiovascular: Regular Rhythm
Respiratory: Wheeze (n), Crackles (Right basilar), Rhonchi (n), Non-Labored Respirations, Accessory Resp Muscle Use (n) and Stridor (n)
GI: Soft, Non Distended and Non Tender
Neurology: Awake, Alert and No Motor Deficits
Skin: Warm, Good Color, Cyanosis (n), Jaundice (n) and Rash (n)
Labs/Micro/Reports
Lab Data
04/22/25 03:56
04/22/25 03:56
[2025-04-22 07:36] VITALS: BP 105/64
[2025-04-22] MEDS: FLOVENT 44 MCG INHALER 2 PUFF INH (07:38)
[2025-04-22] MEDS: NEURONTIN 100 MG PO (08:13)
[2025-04-22] MEDS: LAMICTAL 75 MG PO (08:13)
[2025-04-22] MEDS: PROTONIX 40 MG PO (08:13)
[2025-04-22] MEDS: SENOKOT PO (08:14)
[2025-04-22] MEDS: MIRALAX 17 GRAMS PO (08:14)
[2025-04-22 08:18] VITALS: BP 117/66
[2025-04-22] MEDS: LOPRESSOR 12.5 MG PO (08:20)
--- NOTE | 2025-04-22 08:54 | PTCARENOTE ---
Received pt from manager shift pt AAOx3 and resting comfortably in chair; NSR on monitor and VSS; PIV x2 and patent; lungs diminished with fine crackles in Right lobe; CT x1 clamped CRX @ 1000; positive bowel sounds; pt voiding yellow urine; palpable
pulses throughout; no edema; all surgical sites C/D/I; see nursing documentation for further details.
--- NOTE | 2025-04-22 10:49 | W.PN.ANS.POP ---
Anesthesia Post Operative
- Anesthesia Post Op Note
Vital Signs Stable-See Nursing Note: Yes
Airway Patent: Yes
Adequate Pain Control: Yes
Change in Mental Status: No
Current Postoperative Nausea & Vomiting: No
Anesthesia Complications: No
General Anesthetic Recall: No
Unplanned Admission: No
Post Op Hydration Adequate: Yes
- -
Pt awake and alert, OOB to chair with no anesthesia related c/o at time of post op visit.
--- NOTE | 2025-04-22 10:54 | W.DCSUMMARY ---
Discharge Summary
Discharge Data
Date of Admission: 04/21/25
Date of Discharge: 04/22/25
-
Pending Results: No
Hospital Course
Primary care physician: Thom Skinner
Outpatient application architect manager: Milan Lomeli
Outpatient pulmonary: Sheldon Jean Baptiste
Inpatient consultants: pulmonary medicine
Procedures:
1. Right lower lobe segmentectomy with additional wedge resection of underventilated lung and lymph node dissection
2. Bronchoscopy with ICG localization
Primary Diagnosis:
1. Pulmonary carcinoid, typical
Secondary Diagnoses:
1. Hypertension
2. ALEXUS on CPAP
3. Bipolar disorder
4. Anxiety
5. Ovarian cancer status post total abdominal hysterectomy and bilateral salpingo-oophorectomy
6. Class I obesity (BMI of 33.9)
7. IBS
8. PMR
9. GERD
10. Torn L retina
HPI: 70-year-old female was electively admitted on 04/21/2025 for a right lower lobe segmentectomy due to neuroendocrine tumor of the right lower lobe.
Hospital course: Patient was taken to the operating room and underwent robotic assisted segmentectomy of medial basal segment the right lower lobe, with additional wedge resection of underventilated lung tissue, lymph node dissection by
Luis Daniel Hernandez. Bronchoscopy with ICG localization performed by Dr. Jean Baptiste. Patient was extubated in the operating room and arterial line removed. Heparin SQ was initiated for DVT prophylaxis. Metoprolol tartrate was initiated for A-fib prophylaxis
and will continue for 1 month. Postop day #1 chest x-ray without pneumothorax. Chest tube was clamped and repeat chest x-ray at 10 AM reported no pneumothorax. Right pleural chest tube was removed without difficulty and pursestring suture tied.
Occlusive dressing was applied. Patient ambulated in hallway independently and is deemed stable for discharge to home. She will be followed by transitional care RN and obtain follow-up two-view chest x-ray in 1 week.
Home medication changes:
Flexeril, Oxycodone, Gabapentin as pain management strategy
Metoprolol tartrate for A-fib prophylaxis (x 1 month)
Discharge Plan
-
Patient Disposition: Home (Routine Discharge)
Discharge Diagnosis/Procedures: RLL segmentectomy + lymph node disection
Condition: Good
Diet: Regular
Activity: No strenuous activity
Driving Restrictions: Not until seen by your Dr
Bathing Restrictions: OK to Shower
Others Tests: CXR (PA & lat) in 1 week
Referrals:
CT Transitional Care Nurse [Outside]
Referral Note: The Cardiothoracic Transitional Care Nurse will call you to set up a visit in 1-2 days.
Sheldon Jean Baptiste MD [Active, Pulmonary Medicine]
Thom Skinner MD [Family Provider, Internal Medicine]
Luis Daniel Hernandez MD [Active, Cardiac Surgery] - 05/10/25 1:45 pm
Prescriptions:
New
cyclobenzaprine 10 mg Tablet
5 mg PO Q8HPRN PRN (Reason: muscle spasm) Qty: 10 0RF
acetaminophen 325 mg Tablet
650 mg PO Q4HPRN PRN (Reason: mild pain,headache,temp >101F ) Qty: 0 0RF
metoprolol tartrate 25 mg Tablet
12.5 mg PO BID Qty: 60 2RF
gabapentin 100 mg Capsule
100 mg PO TID Qty: 30 0RF
oxycodone 5 mg Tablet
5 mg PO Q4HPRN PRN (Reason: severe pain) Qty: 15 0RF
Continued
irbesartan 150 MG tablet
75 mg PO DAILY
lamotrigine 100 MG tablet
75 mg PO BID MDD 150 mg
diazepam 5 MG tablet
5 mg PO TIDPRN PRN (Reason: vertigo)
Stool Softener 50 mg Capsule
50 mg PO DAILY PRN (Reason: constipation)
pantoprazole [Protonix] 40 mg Tablet,Delayed Release (Dr/Ec)
40 mg PO DAILY
polyethylene glycol 3350 [Miralax] 17 gram/dose Powder
4 g PO DAILY PRN (Reason: constipation)
hydrochlorothiazide 25 mg Tablet
25 mg PO DAILY
fluticasone furoate [Arnuity Ellipta] 100 mcg/actuation Blister With Device
100 mcg INHALATION 1XD
Emergen-C 1,000 mg Powder Effervescent In Packet
1,000 ea PRN PRN (Reason: if feeling sick)
Discontinued
propranolol 10 mg Tablet
10 mg PO PRN PRN (Reason: palpations )
Care Plan Goals
Care Plan Goals:
Problem: Readiness for enhanced knowledge related to diagnosis and treatment plan
Goal: Understand your diagnosis and treatment plan needs, including medications if applicable.
Instructions: Know your diagnosis, underlying causes and treatment plan options, including medications if applicable. Consult with your health care team to learn about your diagnosis and treatment plan, including medications if applicable.
Discharge Date and Time
Print Language: ARMENIAN
--- NOTE | 2025-04-22 11:02 | PTCARENOTE ---
CRX reviewed by CTNP; CT x1 removed by CTNP.
[2025-04-22 11:15] VITALS: BP 102/50
--- NOTE | 2025-04-22 11:21 | CM ---
Chart reviewed. Patient OOB ambulating the room, daughter at bedside. Patient is independent of ADLS, lives alone in a 2 S[address], 1 JAVI through the garag, 0 DME. Plan is for the patient to return home with CT Transitional RN. CM to follow
--- NOTE | 2025-04-22 11:42 | PTCARENOTE ---
Assessment unchanged; NSR on monitor and VSS; pt resting comfortably in chair with family at bedside.
--- NOTE | 2025-04-22 13:29 | PTCARENOTE ---
geology associate and IVs removed; discharge paperwork gone over with Pt and family; all questions answered; pt transported to car via wheelchair for discharge.
== END 2025-04-22 13:30 | disposition home or self-care (01) | DRG 165 ==
LOC: CVICU 05:05
PROVIDERS: Nurse Practitioner; ADMITTING PHYSICIAN Thoracic Surgery (Cardiothoracic Vascular Surgery); FAMILY PHYSICIAN Internal Medicine; OTHER PHYSICIAN Internal Medicine Critical Care Medicine
PROC: 5A09357 Assistance with Respiratory Ventilation, Less than 24 Consecutive Hours, Continuous Positive Airway Pressure (ICD-10-PCS; 2025-04-21)
PROC: 8E0W4CZ Robotic Assisted Procedure of Trunk Region, Percutaneous Endoscopic Approach (ICD-10-PCS; 2025-04-21)
PROC: 07T74ZZ Resection of Thorax Lymphatic, Percutaneous Endoscopic Approach (ICD-10-PCS; 2025-04-21)
PROC: 0BBF4ZZ Excision of Right Lower Lung Lobe, Percutaneous Endoscopic Approach (ICD-10-PCS; 2025-04-21)
DX: D3A.090 Benign carcinoid tumor of the bronchus and lung (principal); I10 Essential (primary) hypertension; M35.3 Polymyalgia rheumatica; K58.9 Irritable bowel syndrome, unspecified; F31.9 Bipolar disorder, unspecified; G47.33 Obstructive sleep apnea (adult) (pediatric); F41.9 Anxiety disorder, unspecified; R73.03 Prediabetes; H26.9 Unspecified cataract; K21.9 Gastro-esophageal reflux disease without esophagitis; M06.9 Rheumatoid arthritis, unspecified; E66.811 Obesity, class 1; Z68.33 Body mass index [BMI] 33.0-33.9, adult; Z79.82 Long term (current) use of aspirin; Z79.899 Other long term (current) drug therapy; Z85.43 Personal history of malignant neoplasm of ovary; Z90.710 Acquired absence of both cervix and uterus
CPT/HCPCS: 32505; 36415; 71045; 80048; 80053; 81003; 81015; 82248; 83036; 83735; 85025; 85027; 85610; 86850; 86900; 86901; 86920; 87070; 87086; 88305; 88307; 88331; 88342; 93005; 94640; 94660

== ENCOUNTER → 2025-05-03 15:43 | Outpatient (REF) | payer OTHER, SELFPAY | LOC: RAD 15:43 | PROVIDERS: ATTENDING PHYSICIAN Thoracic Surgery (Cardiothoracic Vascular Surgery); FAMILY PHYSICIAN Internal Medicine | DX: J95.811 Postprocedural pneumothorax (principal) | CPT/HCPCS: 71046 ==